=== PATIENT | female | born 1955 | race Caucasian/White ===

== ENCOUNTER 2023-06-18 10:37 | Day surgery (SDC) | payer MEDICARE, BC ==
[2023-06-16 18:33] VITALS: BMI 17.3
[~2023-06-18 10:37] MED LIST: LACTATED RINGERS 1,000 ML IV SCH
--- NOTE | 2023-06-18 11:47 | CT ---
EXAMINATION TYPE: CT chest wo con DATE OF EXAM: 06/18/2023 COMPARISON: HISTORY: ION chest CT DLP: 256 mGycm, Automated exposure control for dose reduction was used. CONTRAST: Performed injected with mL of . TECHNIQUE: Axial images were obtained at 1 mm thick sections. Reconstructed images are reviewed on [employer] computer in the coronal plane. FINDINGS: Portion of the thyroid visualized is normal. Emphysematous changes are present. There is a peripheral tiny nodule in the lateral right upper lung field. Series 4 image 50. Couple of small nodules are within the periphery of the lateral right upper lung field, series 4 images 34-35 There is a 0.3 cm peripheral nodule right anterior lateral lung field. Series 4 image 64. There is a 0.7 cm triangular density anterolateral right upper lobe. Series 4 image 79. There is a 1.2 cm spiculated nodule posterior right mid lung. Series 4 image 127. There is a peripheral 0.7 cm nodule posterior left lung superior segment lower lobe. There is a masslike area within the posterior left infrahilar region measuring 3.6 x 1.9 cm. Example image series 4 image 146. Increased density is within the right lower lung base measuring 1.0 x 2.2 c m within the periphery along the major fissure and a slightly more medial 2.0 cm consolidation. Serie s 4 image 184. There is a posterior medial lung nodule in the posterior right lung base measuring 0.8 cm. Series 4 i mage 263. Scattered areas of pneumonitis are present within the anterior and peripheral lung simmons. Posterior consolidations adjacent to a small pleural effusion is at the posterior left lung base. Not e is made of peribronchial thickening diffusely. There is a small left pleural effusion. No enlarged mediastinal or hilar adenopathy is evident. The ascending aorta diameter at the level o f the main pulmonary artery is 4.1 cm. The main pulmonary artery diameter at the bifurcation is 3.[address] sections are obtained through the upper abdomen. Left adrenal gland may be mildly thickene d at 1.2 cm. IMPRESSION: 1. Suspicious spiculated nodule posterior right lung. 2. Additional areas of increased density within the left infrahilar and right mid lung regions. 3. Additional areas of increased infiltrate and smaller punctate nodules present bilaterally. 4. Peribronchial thickening. 5. Findings suspicious for metastatic disease. This may be complicated by pulmonary fibrosis, chronic bronchitis. Consider lymphangitic metastasis.
[2023-06-18] MEDS ORDERED: MIDAZOLAM 2 MG/2 ML VIAL ONE (12:30)
[2023-06-18] MEDS ORDERED: ROCURONIUM 10 MG/ML (5 ML VIAL) IV ONE (12:30)
[2023-06-18] MEDS ORDERED: PROPOFOL 10 MG/ML 20 ML VIAL IV ONE (12:30)
[2023-06-18] MEDS ORDERED: SUCCINYLCHOLINE CHLORIDE 200 MG/10 ML VIAL IV ONE (12:30)
[2023-06-18] MEDS ORDERED: fentaNYL (PF) 50 MCG/ML 2 ML AMP ONE (12:30)
[2023-06-18] MEDS ORDERED: PHENYLEPHRINE-0.9% NACL SYG 1,000 MCG/10 ML SYRINGE ONE (12:30)
[2023-06-18] MEDS ORDERED: LIDOCAINE 1% INJ 10MG/ML (20 ML MDV) ONE (12:30)
[2023-06-18] MEDS ORDERED: GLYCOPYRROLATE 0.2 MG/ML 2 ML VIAL ONE (12:30)
[2023-06-18] MEDS ORDERED: NEOSTIGMINE 1 MG/ML 10 ML VIAL ONE (12:30)
--- NOTE | 2023-06-18 13:36 | P.PCN ---
Date of Procedure: 06/18/23 Operative Findings: Preoperative Diagnosis: Lower lobe mass measuring 3.5 x 2.6 cm in size Right upper lobe mass measuring 1.4 cm in size Numerous hypermetabolic or thyroid scattered throughout the lungs and bones consistent with metastatic disease. Postoperative Diagnosis: Lower lobe mass measuring 3.5 x 2.6 cm in size Right upper lobe mass measuring 1.4 cm in size Procedure(s) Performed: Flexible bronchoscopy Robotic-assisted bronchoscopy and addition to radial ultrasound evaluation of the pulmonary mass Robotic-assisted transbronchial needle aspirate, transbronchial biopsies, transbronchial brushing of the left lower lobe mass in addition to a bronchioloalveolar lavage Robotic-assisted transbronchial needle aspirate, transbronchial biopsies, transbronchial brushing of the right upper lobe mass in addition to a bronchioloalveolar lavage Anesthesia: JAROCHO Surgeon: Wyatt Alberto Estimated Blood Loss (ml): 0 Pathology: other Condition: stable Disposition: same day Operative Findings: A physical exam was performed. Informed consent was obtained from the patient after explaining all the risks (pneumothorax, life threatening bleeding, infection and adverse effects due to medications), benefits and alternatives to the procedure which the patient appeared to understand and so stated. The patient was connected to the monitoring devices. General anesthesia was induced and the patient was intubated by anesthesia. A final timeout was performed and the procedure confirmed by the attending staff bronchoscopist. The bronchoscope was inserted and the airway examined. The flexible bronchoscope was removed and the robotic bronchoscope was inserted. Registration was completed. I next guided the robotic bronchoscope using the navigation system into the left lower lobe posterior segment. Once in proper position, the bronchoscope was frozen. The radial EBUS probe was placed through the bronchoscope and confirmed abnormal u/s images vs normal lung. A needle was placed through the working channel and under fluoroscopic guidance, we sampled the area thought to have the nodule twice. We then used a cloud biopsy pattern with ultrasound confirmation for 2 additional passes with the needle. U/S evaluation was then used to reconfirm location. Forceps were next introduced through working channel and extended the appropriate distance and 3 transbronchial biopsies were performed using fluoroscopic guidance. The u/s probe was then reinserted to confirm location. When confirmed this process was repeated for a total of 8-10 transbronchial biopsies. After reassessment with EBUS, a brush was placed through the extendable working channel for 1 pass with fluoroscopic guidance. U/S evaluation was then used to confirm location. 40ml of saline was then instilled into the area of the lesion. The robotic br onchoscope was removed and the airway inspected with a flexible bronchoscope and 10 ml of effluent from the BAL was collected. The aspirate was bloody and ultimately declotted and based on that, the sample was discarded. Following that,, the robotic bronchoscope was reinserted and was directed to the apical segment of the right upper lobe. Once in proper position, the bronchoscope was frozen. The radial EBUS probe was placed through the bronchoscope and confirmed abnormal u/s images vs normal lung. A needle was placed through the working channel and under fluoroscopic guidance, we sampled the area thought to have the nodule twice. We then used a cloud biopsy pattern with ultrasound confirmation for 2 additional passes with the needle. U/S evaluation was then used to reconfirm location. Forceps were next introduced through working channel and extended the appropriate distance and 3 transbronchial biopsies were performed using fluoroscopic guidance. The u/s probe was then reinserted to confirm location. When confirmed this process was repeated for a total of 8-10 transbronchial biopsies. After reassessment with EBUS, a brush was placed through the extendable working channel for 1 pass with fluoroscopic guidance. U/S evaluation was then used to confirm location. 40ml of saline was then instilled into the area of the lesion. The robotic bronchoscope was removed and the airway inspected with a flexible bronchoscope and 10 ml of effluent from the BAL was collected Fluoroscopic check for pneumothorax was negative upon completion of the procedure. There was 0 ml blood loss with the procedure. Endobronchial ultrasound was not done as the patient was suspected to have metastatic disease. The flexible bronchoscope was inserted and regular suctioning was done. At the completion of the procedure, no residual secretions or bloody material within the airway. The bronchoscope was removed. The patient was extubated. FINDINGS: 1.The airways appeared abnormal as the patient had some irregularities in the mucosa in the bilateral mainstem bronchi and the main trachea. 2 Successful navigation, ultrasonographic identification, and biopsies of left lower lobe pulmonary mass, right upper lobe mass 3.The the radial ultrasound view was (Concentric/Eccentric)}. RECOMMENDATIONS: Await pathology and cytology results The referring physician will be alerted to the results when available. The patient was advised to follow up with the referring physician with the biopsy results Patient will be called with results.
--- NOTE | 2023-06-18 13:47 | FL ---
Intraoperative/procedural fluoroscopic services were provided for bronchoscopy bilateral lung biopsy. Total fluoroscopy time is 116.7 seconds with a total of 2 submitted images to PACS. Total DAP 0.2750 8 mGym2. Please see the operative note for further details.
[2023-06-18 14:26] VITALS: TEMP 97.2
--- NOTE | 2023-06-18 15:04 | XR ---
EXAMINATION TYPE: XR chest 1V DATE OF EXAM: 06/18/2023 2:51 PM CLINICAL INDICATION:Female, 68 years old with history of post bx; COMPARISON: CT chest from same date 06/18/2023 TECHNIQUE: XR chest 1V Frontal view of the chest. FINDINGS: Lungs/Pleura: Right midlung pulmonary nodule is less well appreciated compared to CT. Pleural effusio n seen on prior PET/CT not well appreciated. Prominent interstitial lung markings are seen scattered throughout the lungs with flattening of the diaphragm and increased lucency of the lung apices. No ev idence of focal consolidation, pneumothorax or pleural effusion. Pulmonary vascularity: Unremarkable. Heart/mediastinum: Cardiomediastinal silhouette is unremarkable. Musculoskeletal: No acute osseous pathology. IMPRESSION: 1. No evidence for pneumothorax. 2. Scattered interstitial opacities correlate for pulmonary fibrosis versus atypical infection. 3. Pulmonary nodules are better appreciated on CT imaging.
[2023-06-18 16:28] VITALS: BP 94/60; PULSE 75; RESP 22
== END 2023-06-18 16:13 | disposition home or self-care (01) ==
LOC: ORWHC2ENDO 10:37
PROVIDERS: ATTEND Internal Medicine Critical Care Medicine
DX: R91.8 Other nonspecific abnormal finding of lung field (principal); J44.9 Chronic obstructive pulmonary disease, unspecified; F17.200 Nicotine dependence, unspecified, uncomplicated; Z79.899 Other long term (current) drug therapy
CPT/HCPCS: 94660; 87798 ×3; 87496; 87498; 87529; 88108; 88305; 88342; 87502; 87634; 88341; 87070; 87205; 87116; 87102; 87206; 71045; 71250; 31628; 31629; 31624; J2250; J0330; J2710; J2001; J3010; J2704; J2371; S2900

== ENCOUNTER → 2023-10-16 | Outpatient (CLI) | payer MEDICARE, BC ==
--- NOTE | 2023-10-19 00:10 | PE ---
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 Images are reviewed on the computer in the coronal, axial, and sagittal planes. Reconstructed rotating images are created on independent workstation and reviewed on the computer. A non-contrast CT is performed in conjunction with the PET scan. Glucose level 92 mg/dL CT DLP: 145 mGycm, Automated exposure control for dose reduction was used. COMPARISON: CT 06/18/2023, PET/CT 06/08/2023, FINDINGS: Mediastinal SUV mean is 1.7. Hepatic parenchyma SUV mean is 2.2 . SKULL BASE AND NECK: No suspicious radiotracer activity. CHEST, MEDIASTINUM, AND HILAR REGION: Scattered FDG activity seen on prior majority of which is decreased. Exhibits include: * Right upper lung pulmonary nodule now measuring 21 x 14 mm previously 11 mm Max SUV 4.9, previousl y 5.7. * Right pulmonary hilum lymph nodes max SUV 2.2, previously 7.9. * Left pulmonary hilum mass max SUV 3.6, previously 9.6. * Scattered small nodular densities throughout the lungs which have mostly resolved. ABDOMEN AND PELVIS: No suspicious radiotracer activity. MUSCULOSKELETAL STRUCTURES: Scattered areas metabolic activity within the osseous structures. there examples include: * Right humerus max SUV 4.9, previously 3.1. * Left humerus max SUV 2.4, previously 1.5. * Right glenoid max SUV 3.1, previously 5.5 * Right rib 5 max SUV 1.7, previously 4.4. * Left sacrum max SUV 4.8, previously 9.7. * Right superior acetabulum max SUV 5.8, previously 3.7. * Right sacrum max SUV 3.5, previously 2.3. * Right pedicle of L3 vertebral body max SUV 4.5, previously 9.6. OTHER CT: Small left pleural fusion. Atherosclerosis of the arterial vasculature. Scattered pulmonary nodules are seen throughout the lungs as above. Moderate to severe emphysema changes are present. IMPRESSION: 1. Overall findings not represent positive response to therapy with decrease in mediastinal lymph no de size and FDG activity as well as decrease in small nodular densities with increased uptake seen on prior. 2. There remains increased metabolic activity scattered throughout the osseous structures some of wh ich have increased metabolic activity while others have decreased in metabolic activity.
== END | disposition home or self-care (01) ==
LOC: RADPETMAIN 13:20
PROVIDERS: ATTEND Internal Medicine Hematology & Oncology
DX: C34.32 Malignant neoplasm of lower lobe, left bronchus or lung (principal); M89.8X9 Other specified disorders of bone, unspecified site
CPT/HCPCS: 78815; A9552

== ENCOUNTER → 2024-01-10 | Outpatient (CLI) | payer MEDICARE, BC ==
--- NOTE | 2024-01-10 17:39 | PE ---
EXAMINATION TYPE: PET CT fusion skull to thigh DATE OF EXAM: 01/10/2024 CLINICAL INDICATION:Female, 68 years old with history of [id number]; TECHNIQUE: Following the intravenous administration of 12.66 mCi of F-18 FDG, whole body images are performed from the skull base to the midthigh. Images are reviewed on the computer in the coronal, axial, and sagittal planes. Reconstructed rotating images are created on independent workstation and reviewed on the computer. A non-contrast CT is performed in conjunction with the PET scan. Glucose level 100 mg/dL CT DLP: 133 mGycm, Automated exposure control for dose reduction was used. COMPARISON: CT None, PET/CT 324, FINDINGS: Mediastinal SUV mean is 1.6. Hepatic parenchyma SUV mean is 2.0. SKULL BASE AND NECK: No suspicious radiotracer activity. CHEST, MEDIASTINUM, AND HILAR REGION: Scattered FDG activity seen on prior majority of which is decreased. Exhibits include: * Right upper lung pulmonary nodule now measuring 10 x 8 mm previously 21 x 14 mm Max SUV 3.6, previ ously 4.9, 5.7. * Right pulmonary hilum lymph nodes max SUV 2.2, previously 2.2, 7.9. * Left pulmonary hilum mass max SUV 2.1, previously 3.6, 9.6. ABDOMEN AND PELVIS: No suspicious radiotracer activity. MUSCULOSKELETAL STRUCTURES: Scattered areas metabolic activity within the osseous structures. there examples include: * Right humerus max SUV 2.7, previously 4.9, 3.1. * Left humerus max SUV 2.5, previously 2.4, 1.5. * Right glenoid max SUV 2.6, previously 3.1, 5.5 * Right rib 5 max SUV 2.2, previously 1.7, 4.4. * Left iliac bone near the SI joint max SUV 3.0, previously 4.8, 9.7. * Right superior acetabulum max SUV 3.3, previously 5.8, 3.7. * Right sacrum max SUV 2.4, previously 3.5, 2.3. * Right pedicle of L3 vertebral body max SUV 2.9, previously 4.5, 9.6. Other scattered areas throughout the spine OTHER CT: Small left pleural fusion. Atherosclerosis of th e arterial vasculature. Scattered pulmonary nodules are seen throughout the lungs as above. Moderate to severe emphysema changes are present. IMPRESSION: 1. Overall findings positive response to therapy with decrease in mediastinal lymph node FDG activit y. 2. Abnormal areas of increased metabolic activity scattered throughout the osseous structures remain present and have also decreased in metabolic activity from prior
== END | disposition home or self-care (01) ==
LOC: RADPETMAIN 13:21
PROVIDERS: ATTEND Internal Medicine Hematology & Oncology
DX: C34.32 Malignant neoplasm of lower lobe, left bronchus or lung (principal)
CPT/HCPCS: 78815; A9552

== ENCOUNTER → 2024-05-12 | Outpatient (CLI) | payer MEDICARE, BC ==
--- NOTE | 2024-05-13 19:17 | PE ---
EXAMINATION TYPE: PET CT fusion skull to thigh DATE OF EXAM: 05/12/2024 CLINICAL INDICATION:Female, 69 years old with history of C34.32 Lung ca; TECHNIQUE: Following the intravenous administration of 11.01 mCi of F-18 FDG, whole body images are performed from the skull base to the midthigh. Images are reviewed on the computer in the coronal, axial, and sagittal planes. Reconstructed rotating images are created on independent workstation and reviewed on the computer. A non-contrast CT is performed in conjunction with the PET scan. Glucose level 122 mg/dL CT DLP: 133.13 mGycm, Automated exposure control for dose reduction was used. COMPARISON: CT 06/18/2023, 05/20/2023 PET/CT 01/10/24, 10/16/2023, 06/08/2023, MRI: None FINDINGS: Mediastinal SUV mean is 1.6. Hepatic parenchyma SUV mean is 1.9. SKULL BASE AND NECK: Redemonstration of focal radiotracer uptake within the right parotid gland with a maximum SUV of 7.1, previously 6.0. CHEST, MEDIASTINUM, AND HILAR REGION: * Right upper lung pulmonary nodule now measuring 11 x 10 mm, previously 10 x 8 mm. Demonstrates a m aximum SUV of 4.9, previously 3.6, 4.9, and 5.7. * Left lower lobe 16 x 13 mm pulmonary nodule. Demonstrate a maximum SUV of 3.9, previously 2.1, 3.6 , 9.6. * Increased size of lingular nodule measuring 28 x 20 mm with a maximum SUV of 2.8, previously 1.6. * No pulmonary hilar radiotracer uptake above background. ABDOMEN AND PELVIS: No suspicious radiotracer activity. MUSCULOSKELETAL STRUCTURES: Increased metabolic activity within the osseous structures with corresponding sclerosis. Examples inc lude: * Right humerus max SUV 4.2, previously 2.7, 4.9, 3.1. * Left humerus max SUV 3.7, previously 2.5, 2.4, 1.5. * Right glenoid max SUV 6.6, previously 2.6, 3.1, 5.5 * Right rib 5 max SUV 4.9, previously 2.2, 1.7, 4.4. * Left iliac bone near the SI joint max SUV 5.6, previously 3.0, 4.8, 9.7. * Right superior acetabulum max SUV 5.9, previously 3.3, 5.8, 3.7. * Right sacrum max SUV 6.6, previously 2.4, 3.5, 2.3. * Right pedicle of L3 vertebral body max SUV 5.5, previously 2.9, 4.5, 9.6. * Left anterior third rib maximum SUV 7.3, previously 2.5. * T5 vertebral body with maximum SUV of 6.2, previously 5.0. OTHER CT: Decreased small left pleural effusion. Atherosclerosis of the arterial vasculature. Moderat e to severe emphysema changes are present. IMPRESSION: Overall progression of disease with increase in metastatic osseous radiotracer uptake from prior exam , increased size of pulmonary nodules and radiotracer uptake, and stable to mildly increased uptake w ithin the right parotid gland metastatic nodule. [facility], , 05/13/2024 7:14 PM
== END | disposition home or self-care (01) ==
LOC: RADPETMAIN 13:12
PROVIDERS: ATTEND Internal Medicine Hematology & Oncology
DX: C34.32 Malignant neoplasm of lower lobe, left bronchus or lung (principal); C79.51 Secondary malignant neoplasm of bone
CPT/HCPCS: 78815; A9552